=== PATIENT | female | born 1990 | race Caucasian/White ===

== ENCOUNTER 2016-05-30 15:14 | Emergency (ER) | payer OTHER ==
[~2016-05-30 15:14] MED LIST: CLONAZEPAM1 MG PO; COLACE100 MG PO; METHADONE H5 MG/5 ML PO; MIRALAX17 GM PO; ONDANSETRON8 M1 PO; PRENATAL1 TA2 PO; PYRIDIATE200 MG PO; SUPRAX400 M1 PO
[2016-05-30 15:22] VITALS: BP 126/79
[2016-05-30] MEDS ORDERED: CLONAZEPAM1 M2 PO (17:13)
--- NOTE | 2016-05-30 17:15 | ED GENERAL ADULT ---
History of Present Illness General Chief Complaint: General Adult Stated Complaint: ERNESTO GUZMAN, LEFT EYE ISSUES, MED REFILL Source: patient Exam Limitations: no limitations Vital Signs & Intake/Output Vital Signs & Intake/Output Vital Signs Date Time Temp Pulse Resp B/P Pulse O2 O2 Flow FiO2 Ox Delivery Rate 05/30 1522 97.8 93 16 126/79 99 Room Air Allergies Coded Allergies: MDX - Amoxicillin (AMOXICILLIN) (Severe, ANAPHYLAXIS 10/26/13) Reconcile Medications Cefixime (Suprax) 400 MG CAPSULE 1 TAB PO DAILY UTI Clonazepam 1 MG TABLET 1 TAB PO TID PRN ANXIETY (Reported) Clonazepam 1 MG TABLET 1 TAB PO TIDPRN PRN anxiety Docusate Sodium (Colace) 100 MG CAPSULE 1 CAP PO BID CONSTIPATION (Reported) METHADONE HCL (Methadone HCl) 5 MG/5 ML SOLUTION 85 MG PO DAILY ADDICTION ( Reported) Ondansetron (Ondansetron Odt) 8 MG TAB.RAPDIS 0.5 TAB PO Q4-6 PRN PRN NAUSEA/ VOMITING (Reported) Phenazopyridine Hydrochlorid2 (Pyridiate) 200 MG TAB 1 TAB PO TID DYSURIA PNV95/FERROUS FUMARATE/FA ( Formula Tablet) 28 MG IRON-800 MCG TABLET 1 TAB PO DAILY (Reported) Polyethylene Glycol 3350 (Miralax) 17 GRAM/DOSE POWDER 17 GM PO DAILY CONSTIPATION (Reported) mix with water, juice, soda, coffee or tea Triage Note: TRIAGE; PT TO ED SIB DR GUZMAN FOR MULTIPLE C/O. HAS BEEN ON KLONOPIN FOR YEARS AND TOLD HE CANNOT PRESCRIBE ANYMORE AND TO GO TO THE ER FOR REFILLS. STATES SHE IS APPROXIMATELY 1 MONTH , AND HAS 1ST APPOINTMENT TOMORROW AT [facility]. PT STATES SHE IS WORRIED ABOUT WITHDRAWALS FROM [facility]. PT HAD HER LAST KLONOPIN THIS AM. PT ALSO STATES THAT DR GUZMAN THINKS SHE HAS CRANIAL NERVE DAMAGE. [facility] BUT [facility] TOO FAR, SO SHE WANTS A REFERRAL FOR A NEUROLOGIST CLOSER. Triage Nurses Notes Reviewed? yes Onset: Gradual Duration: day(s): (1) Timing: no prior history Injury Environment: home Severity: moderate Severity Numbers: 5 No Modifying Factors: none : Yes Patient currently breastfeeds: No HPI: Patient is a 25-year-old female with history of anxiety and depression currently taking Klonopin daily for her anxiety. She reports that her primary care physician told her that he can the longer refill her medication for Klonopin and was told to come to the ER for refills. She also found out that she is last week. Her appointment with her TREATMENT SUPERVISOR is tomorrow. Denies abdominal pain. No vaginal bleeding or discharge. No urinary frequency or urgency or dysuria. She is also reporting that she's had this ongoing left eye issue over the past 5 years with visual changes. She was diagnosed with a cranial nerve palsy, looking for a neurologist that in the area because she was referred to someone IN [place] and that is too far for her to drive. Denies Nausea or vomiting. No vaginal bleeding. Denies any chest pain palpitations or shortness of breath. She reports that she's been on Klonopin, prescribed by the same provider for the past 12 years. She's never gone without and she is worried that she will have a withdrawal seizure if she stops taking it. Denies any increased depression. No suicidal or homicidal ideation. She reports that the visual changes or intermittent and comes randomly. Not currently having any symptoms. (JOSEF NEELY) Past History Travel History Traveled to [place] past 21 day No Medical History Any Pertinent Medical History? see below for history Surgical History Surgical History: non-contributory Psychosocial History What is your primary language Tunisian Tobacco Use: Never used Family History Hx Contributory? No (JOSEF NEELY) Review of Systems Review of Systems Constitutional: Reports: no symptoms. Comments Review of systems: See HPI, All other systems negative. Constitutional, no chills fever or weight loss HEENT: No visual changes no sore throat no congestion Cardiovascular: No chest pain ,palpitation , orthopnea or ankle swelling Skin, no jaundice no rashes Respiratory: No dyspnea cough sputum or hemoptysis GI: No nausea no vomiting : No dysuria No hematuria Muscle skeletal: no back pain, no neck pain, Neurologic: No numbness no confusion NO MELLO Psych: No depression Heme/endocrine: No bruising no bleeding no polyuria or polydipsia Immunology: No splenectomy or history of AIDS (JOSEF NEELY) Physical Exam Physical Exam General Appearance: well developed/nourished, no apparent distress, alert, awake , comfortable Comments: Well-developed well-nourished person in no acute distress HEENT: Normal EENT exam, extraocular motion intact, able to move eyes in all directions without limitation, no nystagmus. Pupils equally round and reactive to light and accommodation. Nose is atraumatic. External auditory canal and Tympanic membranes clear. Pharynx normal. No swelling or edema. Neck: Supple, no lymphadenopathy, normal range of motion without pain or tenderness Back: Nontender Cardiovascular: Regular rate and rhythms no murmurs rubs or gallops, normal JVP Respiratory: Chest nontender. No respiratory distress.breath sounds clear to auscultation bilaterally Abdomen: Soft, nontender nondistended, no appreciable organomegaly. Normal bowel sounds. No ascites Extremity: No edema Neuro: Alert oriented x3, motor sensory normal, cranial nerves II through XII grossly intact. Her bowel or testing is unremarkable. Skin: MILD ACNE ON FACE OTHERWISE No appreciable rash on exposed skin, skin is warm and dry. Psych: Mood and affect is normal, memory and judgment is normal. Core Measures ACS in differential dx? No CVA/TIA Diagnosis: No Severe Sepsis Present: No Septic Shock Present: No (JOSEF NEELY) Progress Differential Diagnoses I considered the following diagnoses in my evaluation of the patient: Medication refill, generalized anxiety disorder, cranial nerve deficit, medication seeking, Plan of Care: 05/30/2016 5:22:56 PM patient was given limited prescription for Klonopin. She was informed that there is potential side effects from taking this medication while being . She is aware. She reports that she took this medication with her first . She'll follow-up with her TREATMENT SUPERVISOR tomorrow and they will decide whether or not she should continue this medication or if she should taper off of it. Her i.e. she has been ongoing for the past 5 years. She's been worked up by an acid supervisor, she is scheduled to see a neurologist but reports that she was referred to is to far and would like referrals in the area. She was given several neurologist to contact. Otherwise she will contact her insurance provider and they will inform her of local neurologist that she can follow-up with. Discussed with Dr. Bauman and he agrees to plan. Initial ED EKG: none (ALANNA ARAYA,JOSEF) Departure Departure Time of Disposition: 1710 Disposition: HOME OR SELF CARE Condition: Stable Clinical Impression Primary Impression: Vision changes Secondary Impressions: Medication refill Referrals: YAZMIN HOLT,RHYS BATES MD,ALESSIO GOTTLIEB MD,ENMA MORA MD,NAHED James (PCP/Family) Additional Instructions: follow up with neurology call to make apt. take klonopin as prescribed. keep obgyn appt for tomorrow. return for worsening symptoms or concerns. Departure Forms: Customer Survey General Discharge Information Prescriptions: Current Visit Scripts Clonazepam 1 TAB PO TIDPRN PRN anxiety #10 TAB (JOSEF NEELY) PA/TOLL GATE TENDER Co-Sign Statement Statement: ED Attending supervision documentation- [] I saw and evaluated the patient. I have also reviewed all the pertinent lab results and diagnostic results. I agree with the findings and the plan of care as documented in the PA's/TOLL GATE TENDER's documentation. [X] I have reviewed the ED Record and agree with the PA's/TOLL GATE TENDER's documentation. [] Additions or exceptions (if any) to the PAs/TOLL GATE TENDER's note and plan are summarized below: [] (DEVONTE HOLT,CLAY Blandon) Critical Care Note Critical Care Note Critical Care Time: non-applicable (JOSEF NEELY)
== END 2016-05-30 17:18 ==
LOC: ERH 15:14
DX: O99.89 Other specified diseases and conditions complicating pregnancy, childbirth and the puerperium (principal); H53.9 Unspecified visual disturbance; Z76.0 Encounter for issue of repeat prescription; Z3A.00 Weeks of gestation of pregnancy not specified
CPT/HCPCS: 99281